=== PATIENT | male | born 1950 | race Caucasian/White ===

== ENCOUNTER 2022-01-09 23:51 | Inpatient (IN) ==
--- NOTE | 2022-01-10 00:15 | Emergency Department Note ---
History of Present Illness General Chief complaint: Shortness of Breath/Dyspnea Time Seen by Provider: 01/10/22 00:03 History of Present Illness 71-year-old male presents emergency department via EMS with reported moderate shortness of breath for the past 2 days. Patient states cough with clear sputum he states increased abdominal girth. Patient states that his cough has worsened he was found to have a low pulse ox per EMS and a high blood pressure. Patient has a history of congestive heart failure. Patient denies substernal chest pain patient denies hemoptysis or fever. There are no other mitigating or alleviating factors Home Medications Medication Instructions Recorded Confirmed Type amlodipine 5 mg tablet 5 mg PO AMHS 01/10/22 01/10/22 History apixaban 5 mg tablet (Eliquis) 5 mg PO BID 01/10/22 01/10/22 History aspirin 81 mg tablet,delayed 81 mg PO DAILY 01/10/22 01/10/22 History release atorvastatin 80 mg tablet 80 mg PO QAM 01/10/22 01/10/22 History ezetimibe 10 mg tablet 10 mg PO QAM 01/10/22 01/10/22 History gabapentin 300 mg capsule 300 mg PO HS 01/10/22 01/10/22 History insulin glargine 100 unit/mL 45 unit subcut DAILY 01/10/22 01/10/22 History subcutaneous solution (Lantus U-100 Insulin) levothyroxine 125 mcg tablet 125 mcg PO QAM 01/10/22 01/10/22 History (Euthyrox) lisinopril 10 mg tablet 10 mg PO QAM 01/10/22 01/10/22 History loratadine 10 mg tablet (Claritin) 10 mg PO DAILY 01/10/22 01/10/22 History metoprolol tartrate 25 mg tablet 25 mg PO QPM 01/10/22 01/10/22 History metoprolol tartrate 25 mg tablet 50 mg PO QAM 01/10/22 01/10/22 History nitroglycerin 0.4 mg sublingual 0.4 mg sublingual DIRECTED PRN 01/10/22 01/10/22 History tablet (Nitrostat) Chest Pain omeprazole 20 mg capsule,delayed 20 mg PO QAM 01/10/22 01/10/22 History release semaglutide 1 mg/dose (4 mg/3 mL) 1 mg subcut WE 01/10/22 01/10/22 History subcutaneous pen injector (Ozempic) Allergies Allergy/AdvReac Type Severity Reaction Status Date / Time No Known Allergies Allergy Verified 01/10/22 02:59 Past Med/Surg History Social History Smoking Status: Never smoker Feels Safe at Home: Yes Immunizations: Past medical history CHF, coronary artery disease, pneumonia, diabetes; past surgical history includes coronary artery bypass grafting x4 Social history, , non-smoker Review of Systems A total of 10 systems reviewed and were otherwise negative Constitutional: no fever Respiratory: + cough and + dyspnea Cardiovascular: + chest pain Gastrointestinal: no abdominal pain Physical Exam Vital Signs Vital Signs - 24 hr 01/09/22 23:39 01/09/22 23:39 01/10/22 00:09 Temperature 36.9 C Temperature Source Oral Pulse Rate 95 H 86 Pulse Rate [Finger] Pulse Rate from SpO2 Sensor Pulse Rhythm Regular Respiratory Rate 24 Respiratory Effort / Characteristics Spontaneous Short of Breath Respiratory Depth Normal Blood Pressure 167/125 H Blood Pressure Mean 139 Pulse Oximetry 95 94 Oxygen Delivery Method Room Air Room Air Room Air Sepsis Recent Fever Within 48 Hours No Sepsis New/Unexplained Change in Mental Status No Sepsis Action Taken by Nursing No Action Required 01/10/22 00:07 01/10/22 00:42 01/10/22 01:00 Temperature Temperature Source Pulse Rate 102 H 96 H 99 H Pulse Rate [Finger] Pulse Rate from SpO2 Sensor 105 H 92 H 91 H Pulse Rhythm Respiratory Rate 20 25 H 17 Respiratory Effort / Characteristics Respiratory Depth Blood Pressure 153/95 H 164/87 H Blood Pressure Mean 114 112 Pulse Oximetry 94 91 93 Oxygen Delivery Method Sepsis Recent Fever Within 48 Hours Sepsis New/Unexplained Change in Mental Status Sepsis Action Taken by Nursing 01/10/22 01:10 01/10/22 01:30 01/10/22 02:00 Temperature Temperature Source Pulse Rate 96 H 94 H 88 Pulse Rate [Finger] Pulse Rate from SpO2 Sensor 94 H 79 74 Pulse Rhythm Respiratory Rate 21 22 20 Respiratory Effort / Characteristics Respiratory Depth Blood Pressure 146/74 H 152/74 H Blood Pressure Mean 98 100 Pulse Oximetry 93 89 L 90 Oxygen Delivery Method Sepsis Recent Fever Within 48 Hours Sepsis New/Unexplained Change in Mental Status Sepsis Action Taken by Nursing 01/10/22 04:26 Temperature Temperature Source Pulse Rate Pulse Rate [Finger] 92 H Pulse Rate from SpO2 Sensor Pulse Rhythm Respiratory Rate 20 Respiratory Effort / Characteristics Spontaneous Respiratory Depth Blood Pressure Blood Pressure Mean Pulse Oximetry 91 Oxygen Delivery Method Room Air Sepsis Recent Fever Within 48 Hours Sepsis New/Unexplained Change in Mental Status Sepsis Action Taken by Nursing GENERAL: Patient is awake alert in no acute distress patient is resting comfortably and showing no signs of anxiety; speaking in full sentences EYES: The conjunctivae are clear. The pupils are round and reactive. EARS, NOSE, MOUTH AND THROAT: The nose is without any evidence of any deformity. Mucous membranes are moist. Tongue is midline. NECK: The neck is nontender and supple. RESPIRATORY: Normal respiratory effort is noted there is no evidence of wheezing rhonchi or rales CARDIOVASCULAR: Regular rate and rhythm noted there no murmurs rubs or gallops normal S1 normal S2. GASTROINTESTINAL: The abdomen is soft. Abdomen is nontender. PELVIS: The Pelvis is stable. No tenderness to palpation is noted. BACK: No midline tenderness or or step-off noted range of motion in flexion extension as well as rotation no signs of muscle spasm noted MUSCULOSKELETAL/EXTREMITIES: There is no evidence of gross deformity full range of motion is noted in the hips and shoulders. SKIN: There is no obvious evidence of any rash. There are no petechiae, pallor or cyanosis noted. NEUROLOGIC: Patient is awake alert and oriented x3 strength is symmetric Course Reevaluation(s) Reevaluation #1: Resting in no distress on repeat examination. Time: 02:05 [facility]ations [facility] Time: 02:05 Administered Medications Magnesium Sulfate/Dextrose (Magnesium Sulfate / D5w) 1 gm in 100 mls @ 50 mls/hr IV Q2H [facility] Stop: 01/10/22 06:44 Last Admin: 01/10/22 03:14 Dose: 50 mls/hr Documented By: DEX Discontinued Medications Furosemide (Furosemide 40 Mg/4 Ml Vial) 40 mg IV ONE ONE Stop: 01/10/22 01:58 Last Admin: 01/10/22 02:07 Dose: 40 mg Documented By: DEX Ipratropium [place] (Ipratropium [place] Neb Soln 0.02% 2.5 Ml Vial) 0.5 mg INH NOW STA Stop: 01/10/22 04:08 Last Admin: 11/05/22 04:26 Dose: 0.5 mg Documented By: THONG Levalbuterol HCl (Levalbuterol 1.25mg/0.5ml Neb) 1.25 mg INH NOW STA Stop: 01/10/22 04:08 Last Admin: 01/10/22 04:26 Dose: 1.25 mg Documented By: THONG Medical Decision Making Medical Records Attestation: I reviewed the patient's medical records. Home Medications Current Medication List: was personally reviewed by me Laboratory Data Attestation: I reviewed the patient's lab results. Result diagrams: 01/10/22 00:23 01/10/22 00:23 Lab Results 01/10/22 01/10/22 01/10/22 Range/Units 00: 00:23 00:23 WBC 12.57 H (4.8-10.8) K/ul RBC 5.08 (4.63-6.08) M/uL Hgb 15.7 (14.0-18.0) g/dl Hct 45.0 (40.1-51.0) % MCV 88.6 (80.0-100.0) fL MCH 30.9 (25.0-34.0) pg MCHC 34.9 (32.0-36.0) g/dL RDW Std Deviation 41.9 (36.4-46.3) fL RDW Coeff of Tanya 13.0 (11.5-14.5) % Plt Count 215 (130-400) K/uL MPV 10.6 (9.4-12.4) fL Immature Gran % (Auto) 0.3 % Neut % (Auto) 79.7 % Lymph % (Auto) 12.3 % [place] % (Auto) 6.4 % Eos % (Auto) 1.0 % Baso % (Auto) 0.3 % Neut # (Auto) 10.02 H (1.4-6.5) K/uL Lymph # (Auto) 1.54 (1.2-3.4) K/uL [place] # (Auto) 0.80 (0.24-0.82) K/uL Eos # (Auto) 0.13 (0-0.50) K/uL Baso # (Auto) 0.04 (0-0.2) K/uL Immature Gran # (Auto) 0.04 H (0.00-0.02) K/uL PT 12.5 H (9.0-12.0) Seconds INR 1.2 H (0.9-1.1) Sodium 136 (136-145) mmol/L Potassium 4.2 (3.5-5.1) mmol/L Chloride 107 (98-107) mmol/L Carbon Dioxide 18 L (21-32) mmol/L Anion Gap 11 (3-11) BUN 26 H (6-23) mg/dl Creatinine 1.94 H (0.6-1.4) mg/dl Est Cr Clr Drug Dosing 39.4 ml/min Est GFR ( Amer) 38.9 ml/min Est GFR (Non-Af Amer) 33.6 ml/min BUN/Creatinine Ratio 13.4 (10-20) Glucose 182 H (70-99(Fasting)) mg/dl Calcium 8.9 (8.5-10.1) mg/dl Magnesium 1.5 L (1.7-2.4) mg/dl Total Bilirubin 1.2 H (0.2-1.0) mg/dl AST 18 (13-39) U/L ALT 15 (7-52) U/L Alkaline Phosphatase 38 (34-104) U/L Troponin I High Sens 15.5 (0-20) pg/ml B-Natriuretic Peptide (0-100) pg/ml Total Protein 6.9 (6.0-8.3) gm/dl Albumin 4.1 (3.4-5.0) gm/dl Globulin 2.8 (2.5-4.0) gm/dl Albumin/Globulin Ratio 1.5 (0.9-2) Urine Color Urine Appearance (Clear) Urine pH (4.5-7.5) Ur Specific [place] (1.000-1.030) Urine Protein (Negative) Urine Glucose (UA) (Negative) Urine Ketones (Negative) Urine Blood (Negative) Urine Nitrite (Negative) Urine Bilirubin (Negative) Urine Urobilinogen (Negative) Ur Leukocyte Esterase (Negative) Urine WBC (Auto) (0-5) /hpf Urine RBC (Auto) (0-4) /hpf U Hyaline Cast (Auto) (0-5) /lpf U Epithel Cells (Auto) (0-5) /lpf Urine Bacteria (Auto) (Negative) SARS-CoV-2 (PCR) (Negative) Influenza Type A (PCR) (Neg) Influenza Type B (PCR) (Neg) RSV (RT-PCR) (Neg) 01/10/22 01/10/22 01/10/22 Range/Units 00:23 00:40 01:22 WBC (4.8-10.8) K/ul RBC (4.63-6.08) M/uL Hgb (14.0-18.0) g/dl Hct (40.1-51.0) % MCV (80.0-100.0) fL MCH (25.0-34.0) pg MCHC (32.0-36.0) g/dL RDW Std Deviation (36.4-46.3) fL RDW Coeff of Tanya (11.5-14.5) % Plt Count (130-400) K/uL MPV (9.4-12.4) fL Immature Gran % (Auto) % Neut % (Auto) % Lymph % (Auto) % [place] % (Auto) % Eos % (Auto) % Baso % (Auto) % Neut # (Auto) (1.4-6.5) K/uL Lymph # (Auto) (1.2-3.4) K/uL [place] # (Auto) (0.24-0.82) K/uL Eos # (Auto) (0-0.50) K/uL Baso # (Auto) (0-0.2) K/uL Immature Gran # (Auto) (0.00-0.02) K/uL PT (9.0-12.0) Seconds INR (0.9-1.1) Sodium (136-145) mmol/L Potassium (3.5-5.1) mmol/L Chloride (98-107) mmol/L Carbon Dioxide (21-32) mmol/L Anion Gap (3-11) BUN (6-23) mg/dl Creatinine (0.6-1.4) mg/dl Est Cr Clr Drug Dosing ml/min Est GFR ( Amer) ml/min Est GFR (Non-Af Amer) ml/min BUN/Creatinine Ratio (10-20) Glucose (70-99(Fasting)) mg/dl Calcium (8.5-10.1) mg/dl Magnesium (1.7-2.4) mg/dl Total Bilirubin (0.2-1.0) mg/dl AST (13-39) U/L ALT (7-52) U/L Alkaline Phosphatase (34-104) U/L Troponin I High Sens (0-20) pg/ml B-Natriuretic Peptide 583 H (0-100) pg/ml Total Protein (6.0-8.3) gm/dl Albumin (3.4-5.0) gm/dl Globulin (2.5-4.0) gm/dl Albumin/Globulin Ratio (0.9-2) Urine Color Yellow Urine Appearance Clear (Clear) Urine pH 5.5 (4.5-7.5) Ur Specific [place] 1.006 (1.000-1.030) Urine Protein Trace H (Negative) Urine Glucose (UA) 2+ H (Negative) Urine Ketones Negative (Negative) Urine Blood Negative (Negative) Urine Nitrite Negative (Negative) Urine Bilirubin Negative (Negative) Urine Urobilinogen Negative (Negative) Ur Leukocyte Esterase Negative (Negative) Urine WBC (Auto) 0 (0-5) /hpf Urine RBC (Auto) 0-4 (0-4) /hpf U Hyaline Cast (Auto) 0 (0-5) /lpf U Epithel Cells (Auto) 0-5 (0-5) /lpf Urine Bacteria (Auto) Negative (Negative) SARS-CoV-2 (PCR) NEGATIVE (Negative) Influenza Type A (PCR) Negative (Neg) Influenza Type B (PCR) Negative (Neg) RSV (RT-PCR) Negative (Neg) Imaging Data Attestation: I personally reviewed and interpreted this imaging study as follows: ECG Data Attestation: I personally reviewed and interpreted this ECG as follows: Additional Comments: EKG interpreted by me sinus rhythm PVCs right bundle branch block no obvious ST segment elevation or depression rate is variable but less than 100 normal axi MDM Narrative Medical decision making differential diagnosis includes CHF, upper respiratory tract infection, pneumonia, bronchitis, electrolyte abnormality. Plan is to check labs, EKG, chest x-ray, observe Impression & Plan Congestive heart failure, CKD (chronic kidney disease) Discharge Plan Visit Data Chief Complaint: Shortness of Breath/Dyspnea ED Provider: John Quintana Discharge Problem: Congestive heart failure, CKD (chronic kidney disease) Patient Disposition: Being Evaluated by Hospitalist Forms Stand Alone Forms: My [facility] Prescriptions Prescriptions: No Action atorvastatin 80 mg tablet 80 mg PO QAM insulin glargine [Lantus U-100 Insulin] 100 unit/mL solution 45 unit SUBCUT DAILY Rx Instructions: or as directed amlodipine 5 mg tablet 5 mg PO AMHS aspirin [Aspir-Low] 81 mg Tablet,Delayed Release (Dr/Ec) 81 mg PO DAILY levothyroxine [Euthyrox] 125 mcg tablet 125 mcg PO QAM lisinopril 10 mg tablet 10 mg PO QAM nitroglycerin [Nitrostat] 0.4 mg Tablet, Sublingual 0.4 mg sublingual DIRECTED PRN (Reason: Chest Pain) gabapentin 300 mg capsule 300 mg PO HS omeprazole 20 mg capsule,delayed release(DR/EC) 20 mg PO QAM loratadine [Claritin] 10 mg Tablet 10 mg PO DAILY ezetimibe 10 mg tablet 10 mg PO QAM metoprolol tartrate 25 mg tablet 25 mg PO QPM metoprolol tartrate 25 mg tablet 50 mg PO QAM Eliquis 5 mg Tablet 5 mg PO BID Ozempic 1 mg/dose (4 mg/3 mL) Pen Injector 1 mg SUBCUT WE Referrals Referrals: Steve Frederick MD [Primary Care Provider] -
[2022-01-10 00:42] LABS: Basophils # (auto) 0.04 K/uL (0-0.2); Basophils % (auto) 0.3 %; Eosinophils # (auto) 0.13 K/uL (0-0.50); Hemoglobin 15.7 g/dl (14.0-18.0); Immature Granulocytes # (auto) 0.04 K/uL (0.00-0.02); Immature Granulocytes % (auto) 0.3 %; Lymphocytes # (auto) 1.54 K/uL (1.2-3.4); Lymphocytes % (auto) 12.3 %; Mean Corpuscular Hemoglobin 30.9 pg (25.0-34.0); Mean Corpuscular Hgb Conc 34.9 g/dL (32.0-36.0); Mean Corpuscular Volume 88.6 fL (80.0-100.0); Mean Platelet Volume 10.6 fL (9.4-12.4); Monocytes % (auto) 6.4 %; Neutrophils # (auto) 10.02 K/uL (1.4-6.5); Neutrophils % (auto) 79.7 %; Platelet Count 215 K/uL (130-400); RDW Standard Deviation 41.9 fL (36.4-46.3); Red Blood Count 5.08 M/uL (4.63-6.08); White Blood Count 12.57 K/ul (4.8-10.8)
[2022-01-10 00:57] LABS: Appearance Urine Clear (Clear); Bacteria Urine Automated Negative (Negative); Bilirubin Urine Negative (Negative); Blood Urine Negative (Negative); Cast Urine Automated 0 /lpf (0-5); Color Urine Yellow; Epithelial Cell Urine Auto 0-5 /lpf (0-5); Glucose Urine UA 2+ (Negative); Ketones Urine Negative (Negative); Leukocyte Esterase Urine Negative (Negative); Nitrite Urine Negative (Negative); Protein Urine Trace (Negative); RBC Urine Automated 0-4 /hpf (0-4); Specific Gravity Urine 1.006 (1.000-1.030); Urobilinogen Urine Negative (Negative); WBC Urine Automated 0 /hpf (0-5); pH Urine 5.5 (4.5-7.5)
[2022-01-10 01:00] LABS: INR 1.2 (0.9-1.1); Prothrombin Time 12.5 Seconds (9.0-12.0)
[2022-01-10 01:09] LABS: Troponin I High Sensitivity 15.5 pg/ml (0-20)
[2022-01-10 01:18] LABS: Albumin Globulin Ratio 1.5 (0.9-2); Albumin Level 4.1 gm/dl (3.4-5.0); BUN Creatinine Ratio 13.4 (10-20); Bilirubin,Total 1.2 mg/dl (0.2-1.0); Calcium 8.9 mg/dl (8.5-10.1); Creatinine Clr Calc Pharmacy 39.4 ml/min; Est GFR (African American) 38.9 ml/min; Est GFR (Non-African American) 33.6 ml/min; Globulin 2.8 gm/dl (2.5-4.0); Magnesium 1.5 mg/dl (1.7-2.4); Potassium 4.2 mmol/L (3.5-5.1); Total Protein 6.9 gm/dl (6.0-8.3)
[2022-01-10 01:33] LABS: Influenza A virus by PCR Negative (Neg); Influenza B virus by PCR Negative (Neg); RSV by PCR Negative (Neg); SARS CoV2 RNA(COVID-19)Cepheid NEGATIVE (Negative)
[2022-01-10] MEDS ORDERED: FUROSEMIDE 40 MG/4 ML VIAL IV ONE (01:57)
[2022-01-10] MEDS: MAGNESIUM SULFATE / D5W 1 GM/100 ML BAG IV SCH ×2 (03:14→05:50)
[2022-01-10] MEDS ORDERED: DOXYCYCLINE HYCLATE 100 MG in DEXTROSE 5% 100 ML IV STA (04:07)
[2022-01-10] MEDS ORDERED: LEVALBUTEROL 1.25MG/0.5ML NEB INH STA (04:07)
[2022-01-10] MEDS ORDERED: IPRATROPIUM BROMIDE NEB SOLN 0.02% 2.5 ML VIAL INH STA (04:07)
[2022-01-10] MEDS ORDERED: XOPENEX/ATROVENT 1.25mg/0.5MG NEB COMBO NEB STA (04:07)
[2022-01-10] MEDS ORDERED: methylPREDNISolone 20 MG in SYRINGE 0 ML IV STA (04:11)
--- NOTE | 2022-01-10 04:39 | History & Physical Report ---
Date of Service January 10, 2022 Assessment & Plan (1) Severe sepsis: Plan: SIRS plus transient hypoxemia plus ARF on CKD Secondary to community-acquired bronchopneumonia chronic diastolic heart failure, patient euvolemic hx CAD status post CABG/PVD PAF on Eliquis, NSR hypertension, slight elevated secondary to illness hyperlipidemia on statin Rx hypothyroidism, euthyroid as of recent outpatient TSH DM 2 insulin requiring, suboptimal control as of recent hemoglobin A1c of 10.4 last July 2021 past tobacco abuse Medical telemetry CS, Ceftriaxone, Doxycycline Nebs and Solu-Medrol 1 dose given bronchospasm on exam causing hypoxemia Monitor creatinine response to IV albumin Hold lisinopril until creatinine back to baseline Basal bolus insulin, ISS BG goal 1 10-1 40, carb count coverage DVT prophylaxis. Eliquis DNR Patient's requesting updates from providers. Tiffanie Mo, contact #[phone]. Total critical care time was 40 minutes. Text document was generated using The [employer] voice recognition software. It may contain grammatical or spelling errors. Kindly contact undersigned for clarification of any documentation item in question. History of Present Illness Chief Complaint: Cough, shortness of breath Primary Care Provider: Steve Frederick MD History obtained from patient, family, and records. Medical history significant for chronic diastolic heart failure (EF 55%, TTE 2020), CAD status post CABG, PVD, PAF on Eliquis, hypertension, hyperlipidemia, hypothyroidism, DM 2 insulin requiring, CRI (baseline creatinine 1.9), past tobacco abuse. Last confinement 2011 for chest pain. 2 days history of cough symptoms productive of brown and yellow sputum with specks of blood. Right-sided pleuritic/stabbing pain from coughing. Worsening shortness of breath. No unusual fluid gain. Some abdominal distention. Patient not sure about sick contacts. Denies aspiration. Has received COVID-19 vaccination. Achy headache symptoms for 2 months now. O2 sats 80s at some point during ER stay. IV Lasix administered at the ER for possible CHF. Medical History as above Surgical History : CABG, vein harvesting Family History : DM, ESRD, stroke Personal/Social history : Past tobacco abuse, no EtOH intake, retired from construction work Allergies Allergy/AdvReac Type Severity Reaction Status Date / Time No Known Allergies Allergy Verified 01/10/22 02:59 Home Medications Medication Instructions Recorded Confirmed Type amlodipine 5 mg tablet 5 mg PO AMHS 01/10/22 01/10/22 History apixaban 5 mg tablet (Eliquis) 5 mg PO BID 01/10/22 01/10/22 History aspirin 81 mg tablet,delayed 81 mg PO DAILY 01/10/22 01/10/22 History release atorvastatin 80 mg tablet 80 mg PO QAM 01/10/22 01/10/22 History ezetimibe 10 mg tablet 10 mg PO QAM 01/10/22 01/10/22 History gabapentin 300 mg capsule 300 mg PO HS 01/10/22 01/10/22 History insulin glargine 100 unit/mL 45 unit subcut DAILY 01/10/22 01/10/22 History subcutaneous solution (Lantus U-100 Insulin) levothyroxine 125 mcg tablet 125 mcg PO QAM 01/10/22 01/10/22 History (Euthyrox) lisinopril 10 mg tablet 10 mg PO QAM 01/10/22 01/10/22 History loratadine 10 mg tablet (Claritin) 10 mg PO DAILY 01/10/22 01/10/22 History metoprolol tartrate 25 mg tablet 25 mg PO QPM 01/10/22 01/10/22 History metoprolol tartrate 25 mg tablet 50 mg PO QAM 01/10/22 01/10/22 History nitroglycerin 0.4 mg sublingual 0.4 mg sublingual DIRECTED PRN 01/10/22 01/10/22 History tablet (Nitrostat) Chest Pain omeprazole 20 mg capsule,delayed 20 mg PO QAM 01/10/22 01/10/22 History release semaglutide 1 mg/dose (4 mg/3 mL) 1 mg subcut WE 01/10/22 01/10/22 History subcutaneous pen injector (Ozempic) Past Med/Surg History Social History Smoking Status: Never smoker Hx Alcohol Use: No Hx Substance Use: No Preferred Language: Turkmen Communication Ability: Effective Systems Software Manager Required: No Beliefs That Will Affect Care: None Current Living Situation: Family Other Information That Helps Us Care for You: No Feels Safe at Home: Yes Assistive Devices: None Review of Systems Review of Systems: As per HPI, all other systems reviewed and negative Physical Exam Physical Exam: GENERAL: Slightly uncomfortable, anxious, obese, slightly hard of hearing, no respiratory distress SKIN: Normal color, warm HEENT: Alopecia, [place] palpebral conjunctivae, no ptosis, dry buccal mucosa NECK : Supple, short neck, no tenderness CHEST : Decreased breath sounds, scattered expiratory wheezes, no tenderness HEART : RRR, no obvious murmurs ABDOMEN: Some distention, nontender EXTREMITIES : Minimal LE swelling, no LE tenderness, no other conspicuous deformities noted NEUROLOGIC : Coherent, no facial asymmetry, slightly hard of hearing, gait and stance not assessed Results & Data Results & Data ([facility]) Vital Signs (Past 12 Hours) Vital Signs Temp Pulse Pulse Resp BP Pulse Ox O2 Del Method 01/10/22 04:26 92 H 20 91 Room Air 01/10/22 02:00 88 20 152/74 H 90 01/10/22 01:30 94 H 22 146/74 H 89 L 01/10/22 01:10 96 H 21 93 01/10/22 01:00 99 H 17 164/87 H 93 01/10/22 00:42 96 H 25 H 153/95 H 91 01/10/22 00:07 102 H 20 94 01/10/22 00:09 86 94 Room Air 01/09/22 23:39 Room Air 01/09/22 23:39 36.9 C 95 H 24 167/125 H 95 Room Air Laboratory Results Laboratory Results WBC 12.57 K/ul (4.8-10.8) H 01/10/22 00:23 RBC 5.08 M/uL (4.63-6.08) 01/10/22 00:23 Hgb 15.7 g/dl (14.0-18.0) 01/10/22 00:23 Hct 45.0 % (40.1-51.0) 01/10/22 00:23 MCV 88.6 fL (80.0-100.0) 01/10/22 00:23 MCH 30.9 pg (25.0-34.0) 01/10/22 00:23 MCHC 34.9 g/dL (32.0-36.0) 01/10/22 00:23 RDW Std Deviation 41.9 fL (36.4-46.3) 01/10/22 00: RDW Coeff of Tanya 13.0 % (11.5-14.5) 01/10/22 00:23 Plt Count 215 K/uL (130-400) 01/10/22 00: MPV 10.6 fL (9.4-12.4) 01/10/22 00:23 Immature Gran % (Auto) 0.3 % 01/10/22 00: Neut % (Auto) 79.7 % 01/10/22 00: Lymph % (Auto) 12.3 % 01/10/22: [place] % (Auto) 6.4 % 01/10/22 00:23 Eos % (Auto) 1.0 % 01/10/22 00:23 Baso % (Auto) 0.3 % 01/10/22 00: Neut # (Auto) 10.02 K/uL (1.4-6.5) H 01/10/22 00:23 Lymph # (Auto) 1.54 K/uL (1.2-3.4) 01/10/22 00: [place] # (Auto) 0.80 K/uL (0.24-0.82) 01/10/22 00:23 Eos # (Auto) 0.13 K/uL (0-0.50) 01/10/22 00:23 Baso # (Auto) 0.04 K/uL (0-0.2) 01/10/22 00:23 Immature Gran # (Auto) 0.04 K/uL (0.00-0.02) H 01/10/22 00: PT 12.5 Seconds (9.0-12.0) H 01/10/22 00: INR 1.2 (0.9-1.1) H 01/10/22 00:23 Sodium 136 mmol/L (136-145) 01/10/22 00:23 Potassium 4.2 mmol/L (3.5-5.1) 01/10/22 00: Chloride 107 mmol/L (98-107) 01/10/22 00: Carbon Dioxide 18 mmol/L (21-32) L 01/10/22 00: Anion Gap 11 (3-11) 01/10/22 00:23 BUN 26 mg/dl (6-23) H 01/10/22 00: Creatinine 1.94 mg/dl (0.6-1.4) H 01/10/22 00:23 Est Cr Clr Drug Dosing 39.4 ml/min 01/10/22 00:23 Est GFR ( Amer) 38.9 ml/min 01/10/22 00: Est GFR (Non-Af Amer) 33.6 ml/min 01/10/22 00:23 BUN/Creatinine Ratio 13.4 (10-20) 01/10/22 00: Glucose 182 mg/dl (70-99(Fasting)) H 01/10/22 00: Calcium 8.9 mg/dl (8.5-10.1) 01/10/22: Magnesium 1.5 mg/dl (1.7-2.4) L 01/10/22: Total Bilirubin 1.2 mg/dl (0.2-1.0) H 01/10/22: AST 18 U/L (13-39) 01/10/22: ALT 15 U/L (7-52) 01/10/22 00: Alkaline Phosphatase 38 U/L (34-104) 01/10/22 00: Troponin I High Sens 15.5 pg/ml (0-20) 01/10/22 00: B-Natriuretic Peptide 583 pg/ml (0-100) H 01/10/22 01:22 Total Protein 6.9 gm/dl (6.0-8.3) 01/10/22 00: Albumin 4.1 gm/dl (3.4-5.0) 01/10/22 00: Globulin 2.8 gm/dl (2.5-4.0) 01/10/22 00:23 Albumin/Globulin Ratio 1.5 (0.9-2) 01/10/22 00:23 Urine Color Yellow 01/10/22:40 Urine Appearance Clear (Clear) 01/10/22:40 Urine pH 5.5 (4.5-7.5) 01/10/22 00:40 Ur Specific [place] 1.006 (1.000-1.030) 01/10/22 00:40 Urine Protein Trace (Negative) H 01/10/22 00:40 Urine Glucose (UA) 2+ (Negative) H 01/10/22 00:40 Urine Ketones Negative (Negative) 01/10/22 00:40 Urine Blood Negative (Negative) 01/10/22 00:40 Urine Nitrite Negative (Negative) 01/10/22 00:40 Urine Bilirubin Negative (Negative) 01/10/22 00:40 Urine Urobilinogen Negative (Negative) 01/10/22 00:40 Ur Leukocyte Esterase Negative (Negative) 01/10/22 00:40 Urine WBC (Auto) 0 /hpf (0-5) 01/10/22 00:40 Urine RBC (Auto) 0-4 /hpf (0-4) 01/10/22 00:40 U Hyaline Cast (Auto) 0 /lpf (0-5) 01/10/22 00:40 U Epithel Cells (Auto) 0-5 /lpf (0-5) 01/10/22 00:40 Urine Bacteria (Auto) Negative (Negative) 01/10/22 00:40 SARS-CoV-2 (PCR) NEGATIVE (Negative) 01/10/22 00:23 Influenza Type A (PCR) Negative (Neg) 01/10/22 00:23 Influenza Type B (PCR) Negative (Neg) 01/10/22 00:23 RSV (RT-PCR) Negative (Neg) 01/10/22 00:[address] HEAD initial read: Bilateral basal ganglia rounded lucencies in the genu of the internal capsules, with peripheral calcifications, of uncertain etiology, likelychronic. No evidence of acute hemorrhage, territorial infarction, hydrocephalus, or mass- effect. CT CHEST Without Contrast initial read: Ill-defined groundglass opacification in the lingula of the left lung. Findings are confounded bysevere motion artifact. Extensive coronaryarterycalcifications and stents. Aortic atherosclerosis. No aneurysm. Intact sternotomy. Gallbladder stones noted EKG as per my interpretation : Rate 100, NSR, LAD, LAFB, RBBB, septal infarct, PVCs
[2022-01-10] MEDS ORDERED: cefTRIAXone SODIUM 2,000 MG/70 ML BAG IV STA (04:40)
[2022-01-10] MEDS ORDERED: ACETAMINOPHEN 325 MG TAB PO STA (04:51)
[2022-01-10] MEDS ORDERED: ALBUMIN 25% 100 mL 25 GM/100 ML VIAL IV ONE (04:51)
[2022-01-10] MEDS ORDERED: BENZONATATE 100 MG CAPSULE PO ONE (04:51)
[2022-01-10] MEDS ORDERED: LANTUS PER UNIT CHARGE SQ ONE (06:00)
[2022-01-10] MEDS ORDERED: GLUCOSE 40% GEL 15 GM TUBE PO PRN (06:51)
[2022-01-10] MEDS ORDERED: GLUCAGON FOR INJ 1 MG VIAL SQ PRN (06:51)
[2022-01-10] MEDS ORDERED: LEVALBUTEROL 1.25MG/0.5ML NEB INH PRN (06:51)
[2022-01-10] MEDS ORDERED: CARBOHYDRATES FOR HYPOGLYCEMIA PO PRN (06:51)
[2022-01-10] MEDS ORDERED: IPRATROPIUM BROMIDE NEB SOLN 0.02% 2.5 ML VIAL INH PRN (06:51)
[2022-01-10] MEDS ORDERED: traMADol HCL 50 MG TABLET PO PRN (06:51)
[2022-01-10] MEDS ORDERED: DEXTROSE 50% 50 ML SYRINGE IV PRN (06:51)
[2022-01-10] MEDS ORDERED: GLUCOSE 10 TAB/TUBE PO PRN (06:51)
[2022-01-10] MEDS ORDERED: PROMETHAZINE HCL 12.5 MG in SODIUM CHLORIDE 0.9% 50 ML IV PRN (06:51)
[2022-01-10] MEDS ORDERED: XOPENEX/ATROVENT 1.25mg/0.5MG NEB COMBO NEB PRN (06:51)
[2022-01-10] MEDS ORDERED: ACETAMINOPHEN 325 MG TAB PO PRN (06:51)
[2022-01-10] MEDS ORDERED: BENZONATATE 100 MG CAPSULE PO PRN (06:51)
[2022-01-10] MEDS: PANTOprazole 40 MG TAB PO SCH (08:37)
[2022-01-10] MEDS: LORATADINE 10 MG TAB PO SCH (08:37)
[2022-01-10] MEDS: METOPROLOL TARTRATE 50 MG TAB PO SCH (08:37)
[2022-01-10] MEDS: APIXABAN 5 MG TABLET PO SCH ×2 (08:37→20:02)
[2022-01-10] MEDS: amLODIPine BESYLATE 5 MG TAB PO SCH ×2 (08:37→20:02)
[2022-01-10] MEDS: ASPIRIN 81 MG ECTAB PO SCH (08:37)
[2022-01-10] MEDS: ATORVASTATIN 40 MG TAB PO SCH (08:37)
[2022-01-10] MEDS: EZETIMIBE 10 MG TABLET PO SCH (08:37)
[2022-01-10] MEDS: LEVOTHYROXINE SODIUM 125 MCG TABLET PO SCH (08:38)
[2022-01-10] MEDS: cefTRIAXone SODIUM 2,000 MG in DEXTROSE 5% 50 ML IV SCH (08:38)
--- NOTE | 2022-01-10 08:43 | Ultrasound Report ---
US abdomen ltd ascites CLINICAL HISTORY: abd distension TECHNIQUE: Real-time grayscale sonographic images of the abdomen were obtained. Comparison: Comparison is made to CT abdomen pelvis 10/05/2011 FINDINGS/IMPRESSION: No ascites is seen. Incidental note is made of a nonobstructive left renal stone . ACT 112: Negative or not required by law. Electronically signed by: Scooter Daniels M.D. 01/10/2022 8:41 AM
[2022-01-10] MEDS: LANTUS PER UNIT CHARGE SQ SCH (08:49)
[2022-01-10] MEDS: INSULIN ASPART PER UNIT SC SCH ×4 (09:30→20:41)
--- NOTE | 2022-01-10 10:55 | XRay Report ---
XR chest 1V portable CLINICAL HISTORY: Dyspnea TECHNIQUE: Single frontal radiograph of the chest was obtained. Comparison: Comparison is made to chest radiograph 10/04/2011 FINDINGS: Median sternotomy wires are unchanged. Cardiomegaly is noted. Prominence and cephalization of the vas culature is seen. No evidence of pleural effusion or pneumothorax. IMPRESSION: Cardiomegaly with possible mild pulmonary edema. ACT 112: Negative or not required by law. Electronically signed by: Scooter Daniels M.D. 01/10/2022 10:54 AM
--- NOTE | 2022-01-10 11:16 | Hospitalist Progress Note ---
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 He is being managed for the following: Sepsis POA: Elevated RR/NM/WBC at presentation along with bronchopneumonia. Committee acquired bronchopneumonia Patient presented with productive sputum and shortness of breath [see above] Admitting CXR reviewed, admitting CT head and CT chest formal read pending WBC elevated, patient afebrile. Patient reports improving cough with decreasing sputum, still tachycardic. Patient started on Rocephin and doxycycline 01/10, continue same. Other chronic medical conditions: CHF/CAD/PAF on Eliquis/HTN/HLD/hypothyroidism --> continue home meds as and when appropriate. Renal function at baseline at presentation. Resume home lisinopril. DVT prophylaxis: Eliquis DNR/DNI Patient's Ms. Tiffanie Hassan, contact #[phone]. Admission and Anticipated Discharge Date Admission Date: January 10, 2022 Subjective Patient seen and examined at bedside as a follow-up of sepsis POA likely secondary to community-acquired bronchopneumonia. Patient was lying in bed, on room air, NAD, reports cough overnight with yellow sputum, patient reported having increasing cough and increasing shortness of breath since 2 days RESIDENT CAREGIVER, patient reports feeling better in the morning with minimal cough, patient denies any headache or dizziness or chest pain or belly pain or feeling of heart racing or other review of symptoms. Patient reports eating okay and moving bowels at his baseline. Physical Exam Physical Exam: GENERAL: Alert and oriented x3. NAD, on RA. HEENT: No pallor, no icterus. Pupils equal, round and reactive to light. Oral mucosa moist. NECK: No JVD, no neck masses. HEART: S1 and S2 heard. tachycardia. No murmur, no gallop. RESPIRATORY SYSTEM: Normal AP diameter. No accessory muscle use. No wheezing, no crackles. ABDOMEN: Soft, bowel sounds present, nontender, no distention. CENTRAL NERVOUS SYSTEM: No facial droop. Speech is clear. Obeys simple commands. Moves extremities. EXTREMITIES: trace ble edema, no erythema seen. Results & Data Results & Data ([facility]) Vital Signs (Past 12 Hours) Vital Signs Temp Pulse Pulse Resp BP BP Pulse Ox 01/10/22 07:30 92 H 01/10/22 07:41 37 C 96 H 14 142/70 H 92 01/10/22 06:52 36.7 C 91 H 20 164/72 H 93 01/10/22 04:26 92 H 20 91 01/10/22 02:00 88 20 152/74 H 90 01/10/22 01:30 94 H 22 146/74 H 89 L 01/10/22 01:10 96 H 21 93 01/10/22 01:00 99 H 17 164/87 H 93 01/10/22 00:42 96 H 25 H 153/95 H 91 01/10/22 00:07 102 H 20 94 01/10/22 00:09 86 94 01/09/22 23:39 01/09/22 23:39 36.9 C 95 H 24 167/125 H 95 O2 Del Method 01/10/22 07:30 01/10/22 07:41 Room Air 01/10/22 06:52 Room Air 01/10/22 04:26 Room Air 01/10/22 02:00 01/10/22 01:30 01/10/22 01:10 01/10/22 01:00 01/10/22 00:42 01/10/22 00:07 01/10/22 00:09 Room Air 01/09/22 23:39 Room Air 01/09/22 23:39 Room Air
--- NOTE | 2022-01-10 13:23 | Electrocardiogram Report ---
Test Reason : Blood Pressure : / mmHG Vent. Rate : 100 BPM Atrial Rate : 100 BPM P-R Int : 164 ms QRS Dur : 132 ms QT Int : 412 ms P-R-T Axes : 013 075 010 degrees QTc Int : 531 ms Sinus rhythm with PVC's Indeterminate axis Right bundle branch block Abnormal ECG When compared with ECG of 06-OCT-2011 06:46, Right bundle branch block is now Present PVC's are new Confirmed by Rito Day ([id number]) on 01/10/2022 1:22:44 PM Referred By: REFERRED SELF Confirmed By:Rito Day
--- NOTE | 2022-01-10 13:36 | CT Scan Report ---
CT chest diagnostic wo con CLINICAL HISTORY: hemoptysis TECHNIQUE: Multidetector row helical CT of the chest was performed. Coronal and sagittal reformations were obtained. Automated dose lowering techniques and/or adjustment according to patient size were u tilized for this exam. Comparison: Comparison is made to CT chest 10/05/2011 FINDINGS: Lungs and pleura: Mild atelectasis is seen. No suspicious pulmonary nodules. Heart and pericardium: Cardiomegaly is seen with biatrial enlargement. Vessels: Patient appears to be status post coronary artery bypass graft. Mediastinum and jean: Subcentimeter lymph nodes are seen. Chest wall and lower neck: Unremarkable. Abdomen: Cholelithiasis is seen without evidence of cholecystitis. Bones: Degenerative changes in the thoracic spine. IMPRESSION: 1. No acute abnormalities are seen. 2. Cholelithiasis without cholecystitis. 3. Cardiomegaly and post-CABG changes. ACT 112: Negative or not required by law. Electronically signed by: Scooter Daniels M.D. 01/10/2022 1:33 PM
--- NOTE | 2022-01-10 15:27 | CT Scan Report ---
CT head/brain wo con CLINICAL HISTORY: ethan keith Technique: Contiguous axial CT images of the head were acquired from the base of the skull to the thalia ricardo without intravenous contrast administration. Images were viewed in brain, subdural and bone [facility]. Automated dose lowering techniques and/or adjustment according to patient size were utilized for this exam. Comparison: None available at the time of this dictation. Findings: Areas of decreased attenuation are present in the periventricular and subcortical white matter bilate rally consistent with small vessel ischemic disease. Generalized cerebral atrophy with commensurate e nlargement of the ventricles, sulci, and cisterns is also present. There is no acute intracranial hem orrhage or evidence of acute territorial infarction. No shift of the midline structures, mass effect, or extra-axial abnormalities are shown. Atherosclerotic calcifications are present in the intracran ial segments of the internal carotid arteries. Nonspecific calcified lucencies are seen in the genu o f the internal capsule. Imaged portions of the paranasal sinuses and mastoid air cells are clear. The orbits appear normal. There are no acute fractures of the calvaria or scalp swelling. Impression: No acute intracranial hemorrhage, no evidence of acute territorial infarction or other acute intracra nial disease process. ACT 112: Negative or not required by law. Electronically signed by: Scooter Daniels M.D. 01/10/2022 3:26 PM
[2022-01-10] MEDS: DOXYCYCLINE HYCLATE 100 MG CAP PO SCH (20:42)
[2022-01-10] MEDS ORDERED: METOPROLOL TARTRATE 25 MG TAB PO SCH (21:00)
[2022-01-10] MEDS ORDERED: GABAPENTIN 300 MG CAP PO SCH (21:00)
[2022-01-11] MEDS: LEVOTHYROXINE SODIUM 125 MCG TABLET PO SCH (05:37)
[2022-01-11 07:22] LABS: Basophils # (auto) 0.05 K/uL (0-0.2); Basophils % (auto) 0.5 %; Eosinophils # (auto) 0.06 K/uL (0-0.50); Eosinophils % (auto) 0.6 %; Hematocrit (blood only) 40.3 % (40.1-51.0); Immature Granulocytes # (auto) 0.03 K/uL (0.00-0.02); Immature Granulocytes % (auto) 0.3 %; Lymphocytes % (auto) 24.2 %; Mean Corpuscular Hemoglobin 30.6 pg (25.0-34.0); Mean Corpuscular Hgb Conc 34.7 g/dL (32.0-36.0); Mean Corpuscular Volume 88.2 fL (80.0-100.0); Monocytes # (auto) 0.78 K/uL (0.24-0.82); Monocytes % (auto) 7.3 %; Neutrophils # (auto) 7.21 K/uL (1.4-6.5); Neutrophils % (auto) 67.1 %; Platelet Count 218 K/uL (130-400); RDW Coefficient of Variation 13.2 % (11.5-14.5); RDW Standard Deviation 42.4 fL (36.4-46.3); Red Blood Count 4.57 M/uL (4.63-6.08); White Blood Count 10.73 K/ul (4.8-10.8)
[2022-01-11] MEDS: APIXABAN 5 MG TABLET PO SCH (07:34)
[2022-01-11] MEDS: ASPIRIN 81 MG ECTAB PO SCH (07:34)
[2022-01-11] MEDS: LORATADINE 10 MG TAB PO SCH (07:34)
[2022-01-11] MEDS: ATORVASTATIN 40 MG TAB PO SCH (07:34)
[2022-01-11] MEDS: METOPROLOL TARTRATE 50 MG TAB PO SCH (07:35)
[2022-01-11] MEDS: PANTOprazole 40 MG TAB PO SCH (07:35)
[2022-01-11] MEDS: EZETIMIBE 10 MG TABLET PO SCH (07:35)
[2022-01-11] MEDS: amLODIPine BESYLATE 5 MG TAB PO SCH (07:36)
[2022-01-11] MEDS: cefTRIAXone SODIUM 2,000 MG in DEXTROSE 5% 50 ML IV SCH (07:40)
[2022-01-11 07:46] LABS: BUN Creatinine Ratio 18.7 (10-20); Calcium 8.9 mg/dl (8.5-10.1); Creatinine Clr Calc Pharmacy 39.2 ml/min; Est GFR (African American) 39.2 ml/min; Est GFR (Non-African American) 33.8 ml/min
[2022-01-11] MEDS: INSULIN ASPART PER UNIT SC SCH ×2 (08:07→12:10)
[2022-01-11] MEDS: LANTUS PER UNIT CHARGE SQ SCH (08:08)
[2022-01-11] MEDS ORDERED: ADVANCED PROBIOTIC 1250 MG CAPSULE PO SCH (09:00)
[2022-01-11] MEDS: DOXYCYCLINE HYCLATE 100 MG CAP PO SCH (10:28)
--- NOTE | 2022-01-11 11:20 | Discharge Summary ---
Date of Service January 11, 2022 Admission HPI Per Admitting Provider History obtained from patient, family, and records. Medical history significant for chronic diastolic heart failure (EF 55%, TTE 2020), CAD status post CABG, PVD, PAF on Eliquis, hypertension, hyperlipidemia, hypothyroidism, DM 2 insulin requiring, CRI (baseline creatinine 1.9), past tobacco abuse. Last confinement 2011 for chest pain. 2 days history of cough symptoms productive of brown and yellow sputum with specks of blood. Right-sided pleuritic/stabbing pain from coughing. Worsening shortness of breath. No unusual fluid gain. Some abdominal distention. Patient not sure about sick contacts. Denies aspiration. Has received COVID-19 vaccination. Achy headache symptoms for 2 months now. O2 sats 80s at some point during ER stay. IV Lasix administered at the ER for possible CHF. Medical History as above Surgical History : CABG, vein harvesting Family History : DM, ESRD, stroke Personal/Social history : Past tobacco abuse, no EtOH intake, retired from construction work Admission Exam Per Admitting Provider GENERAL: Slightly uncomfortable, anxious, obese, slightly hard of hearing, no respiratory distress SKIN: Normal color, warm HEENT: Alopecia, [place] palpebral conjunctivae, no ptosis, dry buccal mucosa NECK : Supple, short neck, no tenderness CHEST : Decreased breath sounds, scattered expiratory wheezes, no tenderness HEART : RRR, no obvious murmurs ABDOMEN: Some distention, nontender EXTREMITIES : Minimal LE swelling, no LE tenderness, no other conspicuous deformities noted NEUROLOGIC : Coherent, no facial asymmetry, slightly hard of hearing, gait and stance not assessed Principal Diagnosis Sepsis present at admission Community-acquired bronchopneumonia Discharge Exam GENERAL: Alert and oriented x3. NAD, on RA. HEENT: No pallor, no icterus. Pupils equal, round and reactive to light. Oral mucosa moist. NECK: No JVD, no neck masses. HEART: S1 and S2 heard. tachycardia. No murmur, no gallop. RESPIRATORY SYSTEM: Normal AP diameter. No accessory muscle use. No wheezing, no crackles. ABDOMEN: Soft, bowel sounds present, nontender, no distention. CENTRAL NERVOUS SYSTEM: No facial droop. Speech is clear. Obeys simple commands. Moves extremities. EXTREMITIES: trace ble edema, no erythema seen. Discharge Data Allergies Allergy/AdvReac Type Severity Reaction Status Date / Time No Known Allergies Allergy Verified 01/10/22 02:59 Consultations 01/10/22 02:04 ED Decision to Admit Stat Ordered Studies 01/10/22 03:00 CT chest diagnostic wo con Urgent CT head/brain wo con Urgent 01/10/22 04:49 US abdomen ltd ascites Urgent Hospital Course (1) Pneumonia: Plan 71-year-old gentleman with past medical history of chronic diastolic heart failure [EF 55%, TTE 2020], CAD status post CABG, PVD, PAF on Eliquis, HTN, HLD, hypothyroidism, DM2, CKD [baseline creatinine 1.9], past tobacco abuse presented to the ED 01/10 with complaint of productive cough [brown/yellow sputum] 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 He is being managed for the following: Sepsis POA:Elevated RR/AK/WBC at presentation along with CAP. Likely Community Aquired Pneumonia Patient presented with productive sputum and shortness of breath [see above] Admitting CXR reviewed, admitting CT head and CT chest reviewed WBC normalized, patient afebrile. Patient reports improving cough with decreasing sputum, hemodynamically stable. Patient started on Rocephin and doxycycline 01/10, on cefuroxime and doxy upon DC. Other chronic medical conditions:CHF/CAD/PAF on Eliquis/HTN/HLD/hypothyroidism --> continue home meds as and when appropriate. Renal function at baseline at presentation. c/w home lisinopril. DVT prophylaxis:Eliquis DNR/DNI Patient's Ms. Tiffanie Hassan, contact #[phone]. 01/10- pt's family updated at bedside. Pt being discharged to home w/ following instruction at the point of DC: Follow-up with your primary care physician within a week time and likely will need blood test CBC/CMP/magnesium level. You will be discharged on oral antibiotic, take antibiotics as prescribed to complete the course. Probiotics will be added. Take your medications as prescribed. Home [facility] Attestation I certify that this patient is under my care and that I, or a physicians study assistant working with me, had a face to-face encounter that meets the [facility] [id number] encounter requirements with this patient. The encounter with the patient was in whole, or in part, for the following me dical condition, which is the primary reason for home health care (list medical condition): I certify that, based on my findings, the following services are medically [facility] home health services: My clinical findings support the need for the above services because: Further, I certify that my clinical findings support that this patient is homebound (i.e. absences from home require considerable and taxing effort and are for medical reasons or spiritism services or infrequently or of short duration when for other reasons) because: Certification for Home Health Services: Based on the above findings, I certify that this patient is confined to the home and needs intermittent fdc care, physical therapy and/or speech therapy or continues to need occupational therapy. The patient is under my care, and I have initiated the establishment of the plan of care. This patient will be followed by a physician who will periodically review the plan of care. Total Time Total Time Spent Total Time Spent (In Minutes): 40 Discharge Plan Discharge Items Patient Disposition: Home - Self-Care Reason For Visit: RESP FAILURE, SEPSIS Discharge Diagnosis: Sepsis present at admission Community-acquired bronchopneumonia Activity: Resume your previous activity Non-emergency contact: Primary Care Provider Call non-emergency contact if: you have any medication questions, your symptoms worsen and your temperature is above 101 Follow-up/Referrals: Steve Frederick MD [Primary Care Provider] - Diet: Carb Consistent or DM2 and Heart Healthy Addtl Attending Provider Instructions: Follow-up with your primary care physician within a week time and likely will need blood test CBC/CMP/magnesium level. You will be discharged on oral antibiotic, take antibiotics as prescribed to complete the course. Probiotics will be added. Take your medications as prescribed. Pending Studies at Discharge: Yes (Admitting blood culture final results.) Stand-Alone Forms: My [facility] Tripleseat, Smoking Cessation Medications and DC Order Prescriptions: New doxycycline hyclate 100 mg Capsule 100 mg PO BID@1000,2200 6 Days Qty: 12 0RF Advanced Probiotic 625 mg (10 billion cell) Capsule 2 cap PO DAILY 7 Days Qty: 14 0RF benzonatate 100 mg Capsule 100 mg PO TID PRN (Reason: cough) 6 Days Qty: 18 0RF cefuroxime axetil 500 mg tablet 500 mg PO BID 6 Days Qty: 12 0RF Continued atorvastatin 80 mg tablet 80 mg PO QAM insulin glargine [Lantus U-100 Insulin] 100 unit/mL solution 45 unit SUBCUT DAILY Rx Instructions: or as directed amlodipine 5 mg tablet 5 mg PO AMHS aspirin 81 mg Tablet,Delayed Release (Dr/Ec) 81 mg PO DAILY levothyroxine [Euthyrox] 125 mcg tablet 125 mcg PO QAM lisinopril 10 mg tablet 10 mg PO QAM nitroglycerin [Nitrostat] 0.4 mg Tablet, Sublingual 0.4 mg sublingual DIRECTED PRN (Reason: Chest Pain) gabapentin 300 mg capsule 300 mg PO HS omeprazole 20 mg capsule,delayed release(DR/EC) 20 mg PO QAM loratadine [Claritin] 10 mg Tablet 10 mg PO DAILY ezetimibe 10 mg tablet 10 mg PO QAM metoprolol tartrate 25 mg tablet 25 mg PO QPM metoprolol tartrate 25 mg tablet 50 mg PO QAM Eliquis 5 mg Tablet 5 mg PO BID Ozempic 1 mg/dose (4 mg/3 mL) Pen Injector 1 mg SUBCUT WE Discharge Orders: Discharge Order (Routine); Ordered 01/11/22 Ordered By: Sara Gr Admission Data Admit Date/Time: 01/10/22 04:44 Attending Provider: Sara Gr Admit Provider: Chris Beth Primary Care Provider: Steve Frederick Other Providers: Chris Beth
== END 2022-01-11 13:09 | disposition home or self-care (01) | DRG 871 ==
LOC: ED 23:51 → 2N 01-10 04:44